=== PATIENT | male | born 1980 | race Caucasian/White ===

== ENCOUNTER 2019-03-06 15:34 | Emergency (ER) | payer SELFPAY ==
[~2019-03-06] VITALS: Ht 180.3 cm; Wt 86.2 kg
--- NOTE | 2019-03-06 15:38 | Emergency Room Report ---
History of Present Illness General Chief Complaint: Alcohol Intoxication Source: Patient, EMS Present Illness HPI Patient is a 38-year-old male brought in by EMS after increased altered level of consciousness and a recent fall. Patient recently been drinking alcohol heavily. He reportedly fell forward hitting his face. He denies any other locations of pain. He denies any neck pain. Patient denies any recent tetanus vaccine. Injury occurred just prior to arrival. Allergies: Coded Allergies: No Known Allergies (Unverified , 03/06/19) Patient History Past Medical History: see triage record Reviewed Nursing Documentation: PMH: Agreed; PSxH: Agreed Review of Systems All Other Systems: negative except mentioned in HPI Physical Exam General Appearance: well appearing, no apparent distress, alert, GCS 15 ENT: hearing grossly normal, normal voice Neck: full range of motion, supple Respiratory: lungs clear, no respiratory distress, speaking full sentences Gastrointestinal: normal inspection Neurologic: normal inspection, alert, oriented x3, responsive, normal gait Psychiatric: mood/affect normal Skin: other - facial abrasions Medical Decision Making Diagnostic Impression: Primary Impression: Acute alcoholic intoxication ER Course Patient is a 38-year-old male who presented after increased facial pain after a fall. Differential diagnosis include was not limited to syncope, alcohol intoxication, head injury among others. Because of complexity of patient's case laboratory testing and imaging studies were ordered.CT the head was read by radiology is negative. Noted to have some abrasions to the forehead which were cleansed. Patient was given tetanus vaccine. Laboratory testing was unremarkable. Patient was noted to be initially somewhat slurring speech. Patient was observed in the emergency department for several hours. Patient subsequently eloped without notifying staff. Labs Test 03/06/19 16:00 White Blood Count 7.8 K/UL (4.8-10.8) Red Blood Count 5.45 M/UL (4.70-6.10) Hemoglobin 15.9 G/DL (14.2-18.0) Hematocrit 47.4 % (42.0-52.0) Mean Corpuscular Volume 87 FL (80-99) Mean Corpuscular Hemoglobin 29.2 PG (27.0-31.0) Mean Corpuscular Hemoglobin Concent 33.6 G/DL (32.0-36.0) Red Cell Distribution Width 12.2 % (11.6-14.8) Platelet Count 283 K/UL (150-450) Mean Platelet Volume 6.3 FL (6.5-10.1) Neutrophils (%) (Auto) 55.9 % (45.0-75.0) Lymphocytes (%) (Auto) 37.2 % (20.0-45.0) Monocytes (%) (Auto) 5.7 % (1.0-10.0) Eosinophils (%) (Auto) 0.2 % (0.0-3.0) Basophils (%) (Auto) 1.1 % (0.0-2.0) EKG Diagnostic Results Rate: tachycardiac - 112 Rhythm: NSR ST Segments: no acute changes Status: improved Disposition: ELOPED Condition: Stable Fermín Schwartz MD Mar 06, 2019 15:38
--- NOTE | 2019-03-06 15:40 | NUR ---
ED Nurse Note: Patient brought in by [id number] due to ETOH abuse and fall incident. patient has abrasion on the nose. patient is alert awake x4, breathing unlabored and even.
[2019-03-06] MEDS ORDERED: Tetanus/Diptheria/Pertussis IM ONE (15:45)
[2019-03-06] MEDS ORDERED: Neosporin Oint Ud Pkt TOPIC ONE (15:45)
[2019-03-06 15:50] VITALS: BP 138/85
[2019-03-06] MEDS ORDERED: CYMBALTA30 MG ORAL (15:51)
[2019-03-06] MEDS ORDERED: BUSPAR10 MG ORAL (15:51)
[2019-03-06 16:14] LABS: BASOPHILS % (AUTO) 1.1 % (0.0-2.0); EOSINOPHILS % (AUTO) 0.2 % (0.0-3.0); HEMATOCRIT 47.4 % (42.0-52.0); HEMOGLOBIN 15.9 G/DL (14.2-18.0); LYMPHOCYTES % (AUTO) 37.2 % (20.0-45.0); MEAN CORPUSCULAR VOLUME 87 FL (80-99); MONOCYTES % (AUTO) 5.7 % (1.0-10.0); NEUTROPHILS % (AUTO) 55.9 % (45.0-75.0); PLATELET COUNT 283 K/UL (150-450); RED BLOOD COUNT 5.45 M/UL (4.70-6.10); RED CELL DISTRIBUTION WIDTH 12.2 % (11.6-14.8); WHITE BLOOD COUNT 7.8 K/UL (4.8-10.8)
[2019-03-06 16:26] LABS: ANION GAP 14 mmol/L (5-15); BLOOD UREA NITROGEN 17 mg/dL (7-18); CALCIUM 8.5 MG/DL (8.5-10.1); CARBON DIOXIDE 24 MMOL/L (21-32); CHLORIDE 110 MMOL/L (98-107); CREATININE 0.9 MG/DL (0.55-1.30); POTASSIUM 3.7 MMOL/L (3.5-5.1); SODIUM 148 MMOL/L (136-145)
--- NOTE | 2019-03-06 16:49 | Diagnostic Imaging Report ---
Indications: Pain, trauma, status post ground-level fall today Technique: Spiral acquisitions obtained through the brain. Angled axial and coronal 5 x 5 mm slices were reconstructed. Total dose length product 1439.42 mGycm. CTDI vol(s) 70.38 mGy. Dose reduction achieved using automated exposure control Comparison: None. Findings: The beth-white differentiation is normal. Normal size ventricles and extra-axial CSF spaces. Visualized orbits and sinuses are unremarkable. The mastoids are clear. The calvarium is intact. Impression: Negative The CT scanner at [facility] is accredited by the [employer] and the scans are performed using protocols designed to limit radiation exposure to as low as reasonably achievable to attain images of sufficient resolution adequate for diagnostic evaluation.
--- NOTE | 2019-03-06 18:10 | NUR ---
ED Nurse Note:pt. is A/ox4 no IV ascess at this time, he left ER with steady gait without notifying staff, ER MD is aware
[2019-03-06 19:34] VITALS: BP 138/85
== END 2019-03-06 18:10 | disposition left against medical advice (07) ==
LOC: EDBD 15:34 → EMR 15:55
DX: F10.129 Alcohol abuse with intoxication, unspecified (principal); R51 Headache; Z23 Encounter for immunization; W18.30XA Fall on same level, unspecified, initial encounter; Y92.9 Unspecified place or not applicable
CPT/HCPCS: 36415; 70450; 80048; 85025; 90471; 90715; 93005; 99284

== ENCOUNTER 2019-05-09 13:28 | Emergency (ER) | payer SELFPAY ==
[~2019-05-09] VITALS: Ht 182.9 cm; Wt 99.8 kg
[~2019-05-09 13:28] MED LIST: BUSPAR10 MG ORAL; CYMBALTA30 MG ORAL
[2019-05-09] MEDS ORDERED: LORazepam Inj 2mg/ml 1ml IV ONE (13:45)
[2019-05-09] MEDS ORDERED: Thiamine HCl 100 MG in D5W 55 ML IVPB ONE (13:45)
[2019-05-09 14:16] LABS: BASOPHILS % (AUTO) 0.7 % (0.0-2.0); EOSINOPHILS % (AUTO) 2.4 % (0.0-3.0); HEMATOCRIT 49.5 % (42.0-52.0); HEMOGLOBIN 16.5 G/DL (14.2-18.0); LYMPHOCYTES % (AUTO) 19.4 % (20.0-45.0); MEAN CORPUSCULAR VOLUME 87 FL (80-99); MONOCYTES % (AUTO) 8.4 % (1.0-10.0); NEUTROPHILS % (AUTO) 69.1 % (45.0-75.0); PLATELET COUNT 217 K/UL (150-450); RED BLOOD COUNT 5.71 M/UL (4.70-6.10); RED CELL DISTRIBUTION WIDTH 12.3 % (11.6-14.8); WHITE BLOOD COUNT 14.3 K/UL (4.8-10.8)
[2019-05-09 14:22] LABS: ANION GAP 10 mmol/L (5-15); BLOOD UREA NITROGEN 11 mg/dL (7-18); CALCIUM 8.9 MG/DL (8.5-10.1); CARBON DIOXIDE 27 MMOL/L (21-32); CHLORIDE 108 MMOL/L (98-107); CREATININE 0.8 MG/DL (0.55-1.30); POTASSIUM 3.7 MMOL/L (3.5-5.1); SODIUM 145 MMOL/L (136-145)
[2019-05-09 14:30] LABS: ALANINE AMINOTRANSFERASE 53 U/L (12-78); ALBUMIN 3.6 G/DL (3.4-5.0); ALBUMIN/GLOBULIN RATIO 0.9 (1.0-2.7); ALKALINE PHOSPHATASE 106 U/L (46-116); ASPARTATE AMINO TRANSFERASE 29 U/L (15-37); BILIRUBIN,TOTAL 0.3 MG/DL (0.2-1.0)
[2019-05-09 14:32] LABS: PHOSPHORUS 4.2 MG/DL (2.5-4.9)
[2019-05-09 14:46] LABS: APPEARANCE,URINE CLEAR; BILIRUBIN, URINE NEGATIVE (NEGATIVE); COLOR,URINE PALE YELLOW; GLUCOSE, URINE (UA) NEGATIVE (NEGATIVE); KETONES,URINE NEGATIVE (NEGATIVE); LEUKOCYTE ESTERASE ,URINE NEGATIVE (NEGATIVE); NITRITE,URINE NEGATIVE (NEGATIVE); PH,URINE 7 (4.5-8.0); PROTEIN,URINE NEGATIVE (NEGATIVE); UROBILINOGEN,URINE NORMAL MG/DL (0.0-1.0)
[2019-05-09 15:19] VITALS: BP 119/81
--- NOTE | 2019-05-09 16:00 | NUR ---
ED Nurse Note: PT BROUGHT IN TODAY BY LEE FROM HOME. AAOX4. AMBULATORY, CALM AND COOPERATIVE. PT STATES HE CALLED 911 DUE TO ALCOHOL WITHDRAWAL. PT STATES HIS LAST DRINK WAS 1 HOUR PRIOR TO ARRIVAL TO ER. VISIBLE SHAKING OF BILATERAL HANDS.
--- NOTE | 2019-05-09 16:16 | Emergency Room Report ---
Physical Exam Vital Signs Date Time Temp Pulse Resp B/P (MAP) Pulse Ox O2 Delivery O2 Flow Rate FiO2 05/09/19 13:22 98.2 114 18 119/81 (94) 99 Room Air 05/09/19 15:16 100 Medical Decision Making Diagnostic Impression: Primary Impression: Alcohol intoxication Additional Impression: Gastritis ER Course Assumed care of the patient from Dr. Schwartz approximately 1615. Briefly, this a 38-year-old male with a history of regular alcohol use presenting for alcohol intoxication and symptoms of withdrawal. He has been drinking heavily over the past few days and states he was feeling some shakiness in his upper extremities today. Alcohol level is greater than 300. He was given thiamine and Ativan in the emergency department. He is currently sleeping comfortably. Labs are otherwise within normal limits. Once he is clinically sober he may be discharged with outpatient follow-up. Laboratory Tests Test 05/09/19 13:45 05/09/19 14:34 White Blood Count 14.3 K/UL (4.8-10.8) H Red Blood Count 5.71 M/UL (4.70-6.10) Hemoglobin 16.5 G/DL (14.2-18.0) Hematocrit 49.5 % (42.0-52.0) Mean Corpuscular Volume 87 FL (80-99) Mean Corpuscular Hemoglobin 29.0 PG (27.0-31.0) Mean Corpuscular Hemoglobin Concent 33.4 G/DL (32.0-36.0) Red Cell Distribution Width 12.3 % (11.6-14.8) Platelet Count 217 K/UL (150-450) Mean Platelet Volume 5.7 FL (6.5-10.1) L Neutrophils (%) (Auto) 69.1 % (45.0-75.0) Lymphocytes (%) (Auto) 19.4 % (20.0-45.0) L Monocytes (%) (Auto) 8.4 % (1.0-10.0) Eosinophils (%) (Auto) 2.4 % (0.0-3.0) Basophils (%) (Auto) 0.7 % (0.0-2.0) Sodium Level 145 MMOL/L (136-145) Potassium Level 3.7 MMOL/L (3.5-5.1) Chloride Level 108 MMOL/L (98-107) H Carbon Dioxide Level 27 MMOL/L (21-32) Anion Gap 10 mmol/L (5-15) Blood Urea Nitrogen 11 mg/dL (7-18) Creatinine 0.8 MG/DL (0.55-1.30) Estimate Glomerular Filtration Rate > 60 mL/min (>60) Glucose Level 99 MG/DL (74-106) Calcium Level 8.9 MG/DL (8.5-10.1) Phosphorus Level 4.2 MG/DL (2.5-4.9) Magnesium Level 2.1 MG/DL (1.8-2.4) Total Bilirubin 0.3 MG/DL (0.2-1.0) Aspartate Amino Transferase (AST) 29 U/L (15-37) Alanine Aminotransferase (ALT) 53 U/L (12-78) Alkaline Phosphatase 106 U/L (46-116) Total Protein 7.4 G/DL (6.4-8.2) Albumin 3.6 G/DL (3.4-5.0) Globulin 3.8 g/dL Albumin/Globulin Ratio 0.9 (1.0-2.7) L Salicylates Level 1.0 ug/mL (2.8-20) L Acetaminophen Level < 2 MCG/ML (10-30) L Serum Alcohol 347 mg/dL Urine Color Pale yellow Urine Appearance Clear Urine pH 7 (4.5-8.0) Urine Specific [place] 1.005 (1.005-1.035) Urine Protein Negative (NEGATIVE) Urine Glucose (UA) Negative (NEGATIVE) Urine Ketones Negative (NEGATIVE) Urine Blood Negative (NEGATIVE) Urine Nitrite Negative (NEGATIVE) Urine Bilirubin Negative (NEGATIVE) Urine Urobilinogen Normal MG/DL (0.0-1.0) Urine Leukocyte Esterase Negative (NEGATIVE) Urine Opiates Screen Negative (NEGATIVE) Urine Barbiturates Screen Negative (NEGATIVE) Phencyclidine (PCP) Screen Negative (NEGATIVE) Urine Amphetamines Screen Negative (NEGATIVE) Urine Benzodiazepines Screen Negative (NEGATIVE) Urine Cocaine Screen Negative (NEGATIVE) Urine Marijuana (THC) Screen Positive (NEGATIVE) H Reevaluation Time: 17:46 Last Vital Signs Date Time Temp Pulse Resp B/P (MAP) Pulse Ox O2 Delivery O2 Flow Rate FiO2 05/09/19 15:19 98.2 20 119/81 99 Room Air 100 05/09/19 15:16 89 Reevaluation Impression Patient has been allowed to metabolize in the emergency department for 4-1/2 hours. He is able to eat and drink without difficulty. He is clinically sober and answering questions appropriately. Ambulate with a steady gait. He will be given a short course of Librium for his withdrawal symptoms with the patient states he is never had a withdrawal seizure. He also be discharged with omeprazole given his recent GERD symptoms. He was given a GI cocktail prior to departure which improved the burning sensation he states he had in his upper abdomen. He can follow-up with outpatient services for alcohol abuse and referred to clinics in the area to establish himself as a new patient. He states he is already reached out to several alcohol rehab places in the area that he has used before. We discussed reasons to return to the emergency department. He understands and agrees with this treatment plan was discharged. Disposition: HOME, SELF-CARE Condition: Improved Scripts Chlordiazepoxide Hcl* (LIBRIUM*) 10 Mg Capsule 10 MG ORAL BID for 3 Days, #6 CAP 0 Refills Prov: Leonardo Tabor MD 05/09/19 Omeprazole (OMEPRAZOLE) 20 Mg Capsule. 20 MG ORAL DAILY for 30 Days, #30 CAP Prov: Leonardo Tabor MD 05/09/19 Leonardo Tabor MD May 09, 2019 16:16
[2019-05-09] MEDS ORDERED: Mylanta II UD 30ml ORAL ONE (17:15)
[2019-05-09] MEDS ORDERED: Dicyclomine HCl 10mg/5ml oral soln ORAL ONE (17:15)
[2019-05-09] MEDS ORDERED: Lidocaine 2% Visc 15ml soln ORAL ONE (17:15)
[2019-05-09] MEDS ORDERED: LIBRIUM10 MG ORAL (17:46)
[2019-05-09] MEDS ORDERED: OMEPRAZOLE20 M2 ORAL (17:46)
[2019-05-09 17:59] VITALS: BP 145/85
--- NOTE | 2019-05-09 17:59 | NUR ---
ER DISCHARGE NOTE: Patient is cleared to be discharged per ERMD, pt is aox4, on room air, with stable vital signs. pt was given dc and prescription instructions, pt was able to verbalize understanding, pt id band and iv site removed without complications. pt is able to ambulate with steady gait. pt took all belongings.
--- NOTE | 2019-05-09 22:13 | Emergency Room Report ---
History of Present Illness General Chief Complaint: General Complaint Source: Patient Present Illness HPI Patient is a 38 year old male brought in by EMS after increased shakiness. Had been drinking heavily today. Allergies: Coded Allergies: No Known Allergies (Unverified , 03/06/19) Patient History Past Medical History: see triage record Reviewed Nursing Documentation: PMH: Agreed; PSxH: Agreed Nursing Documentation-PMH Past Medical History: No Stated History Review of Systems All Other Systems: limited - by poor historian Physical Exam Vital Signs Date Time Temp Pulse Resp B/P (MAP) Pulse Ox O2 Delivery O2 Flow Rate FiO2 05/09/19 13:22 98.2 114 18 119/81 (94) 99 Room Air 05/09/19 15:16 100 Sp02 EP Interpretation: reviewed, normal General Appearance: normal inspection, well appearing, no apparent distress, alert, GCS 15 Head: atraumatic ENT: normal ENT inspection, hearing grossly normal, normal voice Neck: normal inspection, full range of motion, supple, no bony tend Respiratory: normal inspection, lungs clear, normal breath sounds, no respiratory distress, no retraction, no wheezing Cardiovascular #1: regular rate, rhythm, no edema Gastrointestinal: normal inspection, normal bowel sounds, non tender, soft, no guarding, no hernia Genitourinary: no CVA tenderness Musculoskeletal: normal inspection, back normal, normal range of motion Neurologic: normal inspection, alert, responsive, other - slurred speech Psychiatric: normal inspection, judgement/insight normal, mood/affect normal Medical Decision Making Diagnostic Impression: Primary Impression: Alcohol intoxication Additional Impression: Gastritis Labs Test 05/09/19 13:45 05/09/19 14:34 White Blood Count 14.3 K/UL (4.8-10.8) Red Blood Count 5.71 M/UL (4.70-6.10) Hemoglobin 16.5 G/DL (14.2-18.0) Hematocrit 49.5 % (42.0-52.0) Mean Corpuscular Volume 87 FL (80-99) Mean Corpuscular Hemoglobin 29.0 PG (27.0-31.0) Mean Corpuscular Hemoglobin Concent 33.4 G/DL (32.0-36.0) Red Cell Distribution Width 12.3 % (11.6-14.8) Platelet Count 217 K/UL (150-450) Mean Platelet Volume 5.7 FL (6.5-10.1) Neutrophils (%) (Auto) 69.1 % (45.0-75.0) Lymphocytes (%) (Auto) 19.4 % (20.0-45.0) Monocytes (%) (Auto) 8.4 % (1.0-10.0) Eosinophils (%) (Auto) 2.4 % (0.0-3.0) Basophils (%) (Auto) 0.7 % (0.0-2.0) Sodium Level 145 MMOL/L (136-145) Potassium Level 3.7 MMOL/L (3.5-5.1) Chloride Level 108 MMOL/L (98-107) Carbon Dioxide Level 27 MMOL/L (21-32) Anion Gap 10 mmol/L (5-15) Blood Urea Nitrogen 11 mg/dL (7-18) Creatinine 0.8 MG/DL (0.55-1.30) Estimat Glomerular Filtration Rate > 60 mL/min (>60) Glucose Level 99 MG/DL (74-106) Calcium Level 8.9 MG/DL (8.5-10.1) Phosphorus Level 4.2 MG/DL (2.5-4.9) Magnesium Level 2.1 MG/DL (1.8-2.4) Total Bilirubin 0.3 MG/DL (0.2-1.0) Aspartate Amino Transf (AST/SGOT) 29 U/L (15-37) Alanine Aminotransferase (ALT/SGPT) 53 U/L (12-78) Alkaline Phosphatase 106 U/L (46-116) Total Protein 7.4 G/DL (6.4-8.2) Albumin 3.6 G/DL (3.4-5.0) Globulin 3.8 g/dL Albumin/Globulin Ratio 0.9 (1.0-2.7) Salicylates Level 1.0 ug/mL (2.8-20) Acetaminophen Level < 2 MCG/ML (10-30) Serum Alcohol 347 mg/dL Urine Color Pale yellow Urine Appearance Clear Urine pH 7 (4.5-8.0) Urine Specific [place] 1.005 (1.005-1.035) Urine Protein Negative (NEGATIVE) Urine Glucose (UA) Negative (NEGATIVE) Urine Ketones Negative (NEGATIVE) Urine Blood Negative (NEGATIVE) Urine Nitrite Negative (NEGATIVE) Urine Bilirubin Negative (NEGATIVE) Urine Urobilinogen Normal MG/DL (0.0-1.0) Urine Leukocyte Esterase Negative (NEGATIVE) Urine Opiates Screen Negative (NEGATIVE) Urine Barbiturates Screen Negative (NEGATIVE) Phencyclidine (PCP) Screen Negative (NEGATIVE) Urine Amphetamines Screen Negative (NEGATIVE) Urine Benzodiazepines Screen Negative (NEGATIVE) Urine Cocaine Screen Negative (NEGATIVE) Urine Marijuana (THC) Screen Positive (NEGATIVE) Last Vital Signs Date Time Temp Pulse Resp B/P (MAP) Pulse Ox O2 Delivery O2 Flow Rate FiO2 05/09/19 17:59 98.1 70 20 145/85 98 Room Air 05/09/19 15:19 100 Status: improved Disposition: HOME, SELF-CARE Condition: Improved Scripts Chlordiazepoxide Hcl* (LIBRIUM*) 10 Mg Capsule 10 MG ORAL BID for 3 Days, #6 CAP 0 Refills Prov: Leonardo Tabor MD 05/09/19 Omeprazole (OMEPRAZOLE) 20 Mg Capsule.dr 20 MG ORAL DAILY for 30 Days, #30 CAP Prov: Leonardo Tabor MD 05/09/19 Referrals: NOT CHOSEN IPA/,REFERRING (PCP) [facility] - Peds ER - [facility] Intake Hotline - [facility] Patient Instructions: Alcohol Abuse and Nutrition Additional Instructions: In the future, please refrain from drinking excess amounts of alcohol as it can be harmful to your health and even fatal. If you need help with drug or alcohol abuse please contact 1 of the centers listed here in your discharge paperwork. If you have signs of withdrawal including severe shakes, persistent vomiting, severe abdominal pain, loss of consciousness, seizure-like activity or any other sudden changes in your health return to the emergency department for reevaluation. Fermín Schwartz MD May 09, 2019 22:13
== END 2019-05-09 18:01 | disposition home or self-care (01) ==
LOC: EDBD 13:28 → EMR 16:05
DX: F10.129 Alcohol abuse with intoxication, unspecified (principal); Y90.8 Blood alcohol level of 240 mg/100 ml or more; K29.70 Gastritis, unspecified, without bleeding
CPT/HCPCS: 36415; 80053; 80307; 81003; 83735; 84100; 85025; 96365; 99284; G0480